=== PATIENT | male | born 1955 | race Caucasian/White ===

== ENCOUNTER 2018-02-15 10:24 | Emergency (ER) | payer OTHER ==
[~2018-02-15] VITALS: Ht 177.8 cm; Wt 117.9 kg
--- NOTE | ~2018-02-15 | EKG ---
[place], [place] ELECTROCARDIOGRAM REPORT NAME: IVÁN FORREST UNIT #: [id number] ROOM: DOCTOR: EPIPHANY DRAFT REPORT BIRTHDATE: [birth year] [facility] Test Date: 2018-02-15 Test Time: 10:36:40 Pat Name: IVÁN FORREST Department: er Room: 3 Gender: M Bartender: EKG.ME : 1955 Requested By: AFSHAN ALVARADO Order Number: [id number] Reading MD: Lalo Ramos MD Measurements Intervals [place] Rate: 105 P: 66 WV: 167 QRS: 54 QRSD: 100 T: 14 QT: 352 QTc: 466 Interpretive Statements Sinus tachycardia Ventricular premature complex Electronically Signed On 02-15-2018 13:47:50 PDT by Lalo Ramos MD CM:EKGRPT:ELECTROCARDIOGRAM REPORT [id number] AFSHAN ALVARADO MD EPIPHANY DRAFT REPORT AFSHAN ALVARADO MD
[2018-02-15 10:52] LABS: BASO % 0.6 % (0.0-1.0); EOS % 0.8 % (1.0-4.0); HEMATOCRIT 39.4 % (42.0-52.0); HEMOGLOBIN 13.3 g/dl (14.0-18.0); LYMPH # 0.9 10*3/uL (1.3-4.4); LYMPH % 17.6 % (27.0-41.0); MEAN CELL VOLUME 90.4 fl (80.0-94.0); MEAN CORPUSCULAR HGB 30.5 pg (27.0-31.0); MEAN CORPUSCULAR HGB CONC 33.8 g/dl (33.0-37.0); MEAN PLATELET VOLUME 9.4 fl (9.6-12.3); MONO # 0.4 10*3/uL (0.1-1.0); NEUT # 3.6 10*3/uL (2.3-7.9); NEUT % 72.8 % (47.0-73.0); PLATELET COUNT AUTOMATED 238 10*3/uL (130-400); RED BLOOD COUNT 4.36 10*6/uL (4.50-5.90); RED CELL DISTRI WIDTH 12.9 % (0-14.5); WHITE BLOOD COUNT 4.9 10*3/uL (4.8-10.8)
[2018-02-15 11:00] LABS: ACT PARTIAL THROMBO TIME 23.1 SECONDS (20.8-31.5)
[2018-02-15 11:08] LABS: ALBUMIN 3.8 gm/dl (3.1-4.5); ALKALINE PHOSPHATASE 96 U/L (45-117); BUN 18 mg/dl (7-24); CHLORIDE 102 mmol/L (98-107); POTASSIUM 3.3 mmol/L (3.5-5.1); SGOT/AST 58 IU/L (3-35); SGPT/ALT 44 U/L (12-78); SODIUM 136 mmol/L (136-145); TOTAL PROTEIN 7.9 gm/dL (6.4-8.2)
[2018-02-15 11:12] LABS: TROPONIN I < 0.015 ng/ml (<0.045)
[2018-02-15 13:27] LABS: BILIRUBIN 1+ (NEGATIVE); BLOOD 2+ (NEGATIVE); CLARITY SL CLOUDY (CLEAR); COLOR YELLOW (YELLOW); GLUCOSE NEGATIVE (NEGATIVE); KETONE 1+ (NEGATIVE); LEUKO ESTERASE NEGATIVE (NEGATIVE); NITRITE NEGATIVE (NEGATIVE); SPECIFIC GRAVITY >= 1.030 (1.005-1.030); UROBILINOGEN 0.2 E.U./dl (0.2-1.0)
[2018-02-15 13:45] LABS: BACTERIA 2+; FINE GRANULAR CAST 15-20; MUCOUS 2+; RBC 16-20 rbc/hpf (0-2)
[2018-02-15 16:20] VITALS: BP 179/106
== END 2018-02-15 19:08 | disposition short-term general hospital (02) ==
LOC: ED 10:24
PROVIDERS: Emergency Medicine
DX: R91.8 Other nonspecific abnormal finding of lung field (principal); R59.0 Localized enlarged lymph nodes; I87.1 Compression of vein; R53.83 Other fatigue; E66.9 Obesity, unspecified